=== PATIENT | female | born 1990 | race African-American/Black ===

== ENCOUNTER 2023-04-23 15:32 | Emergency (ER) | payer OTHER ==
[2023-04-23 15:48] VITALS: TEMP 98.4; BMI 32.9
[2023-04-23] MEDS ORDERED: NIFEdipine E.R 60 MG TABLET PO ONE (18:14)
[2023-04-23] MEDS ORDERED: ACETAMINOPHEN INJECTION 100 ML IVPB ONE (18:15)
[2023-04-23] MEDS ORDERED: FAMOTIDINE 20 MG/50 ML IVPB 20 MG/50 ML MG IVPB ONE (18:15)
[2023-04-23] MEDS ORDERED: ONDANSETRON 4 MG/2 ML VIAL ONE (18:15)
[2023-04-23] MEDS: FAMOTIDINE 20 MG/50 ML IVPB 20 MG/50 ML MG IVPB ONE (18:36)
[2023-04-23] MEDS: LACTATED RINGERS SOLUTION 1000 ML INFUS.BAG IV ONE (18:36)
[2023-04-23] MEDS: ONDANSETRON 4 MG/2 ML VIAL IVPUSH ONE (18:36)
[2023-04-23] MEDS: ACETAMINOPHEN 1000 MG/100 ML BAG IVPB ONE (18:36)
[2023-04-23 18:50] LABS: BASO % 0.8 % (0-2.0); HEMATOCRIT 42.9 % (32.4-45.2); HEMOGLOBIN 13.8 GM/dL (10.7-15.3); LYMPH % 14.9 % (8-40); MCH 25.2 pg (25.7-33.7); MEAN CELL VOLUME 78.7 fl (80-96); MEAN PLT VOLUME 9.4 fl (7.5-11.1); MONO % 4.9 % (3.8-10.2); NEUT % 79.4 % (42.8-82.8); PLATELET COUNT 277 10^3/uL (134-434); RBC 5.45 M/mm3 (3.60-5.2); RDW 15.6 % (11.6-15.6); WHITE BLOOD COUNT 10.6 K/mm3 (4.0-10.0)
[2023-04-23] MEDS: NIFEdipine E.R 60 MG TABLET PO SCH (18:56)
[2023-04-23 19:00] LABS: POTASSIUM 4.1 mmol/L (3.5-5.1)
[2023-04-23 19:02] LABS: ALBUMIN 4.7 g/dl (3.4-5.0); CALCIUM 9.5 mg/dL (8.5-10.1)
[2023-04-23 19:03] LABS: BLOOD UREA NITROGEN 10.1 mg/dL (7-18); MAGNESIUM 2.2 mg/dL (1.8-2.4)
[2023-04-23 19:05] LABS: CREATININE 0.8 mg/dL (0.55-1.3)
[2023-04-23 19:07] LABS: BILIRUBIN,TOTAL 0.6 mg/dL (0.2-1)
[2023-04-23 21:02] VITALS: BP 177/103; PULSE 75; RESP 16
== END 2023-04-23 21:21 | disposition home or self-care (01) ==
LOC: JER 15:32
PROC: 3E033GC Introduction of Other Therapeutic Substance into Peripheral Vein, Percutaneous Approach (ICD-10-PCS; principal; 2023-04-23)
PROC: 3E033GC Introduction of Other Therapeutic Substance into Peripheral Vein, Percutaneous Approach (ICD-10-PCS; 2023-04-23)
PROC: 3E033NZ Introduction of Analgesics, Hypnotics, Sedatives into Peripheral Vein, Percutaneous Approach (ICD-10-PCS; 2023-04-23)
DX: R11.2 Nausea with vomiting, unspecified (principal); I10 Essential (primary) hypertension; R19.7 Diarrhea, unspecified; R10.9 Unspecified abdominal pain; Z20.822 Contact with and (suspected) exposure to COVID-19
CPT/HCPCS: 0241U-QW; 36415; 70450-TC; 80053; 83690; 83735; 85025; 93005; 93010; 99285-25; J0131

== ENCOUNTER 2023-10-29 05:23 | Emergency (ER) | payer SELFPAY ==
[2023-10-29 05:36] VITALS: RESP 18; TEMP 98.8; BMI 32.3
[2023-10-29] MEDS ORDERED: NIFEdipine E.R. 90 MG TABLET PO SCH ×2 (06:32→10:00)
[2023-10-29] MEDS ORDERED: ACETAMINOPHEN 325 MG TABLET (FP) ONE (06:46)
[2023-10-29] MEDS ORDERED: METHOCARBAMOL 500 MG TABLET ONE (06:59)
[2023-10-29] MEDS: METHOCARBAMOL 500 MG TABLET PO ONE (07:04)
[2023-10-29] MEDS: ACETAMINOPHEN 325 MG TABLET (FP) PO ONE (07:04)
[2023-10-29 07:26] LABS: INR 0.98 (0.83-1.09); PROTHROMBIN TIME (PATIENT) 11.3 SEC (9.7-13.0)
[2023-10-29 07:29] LABS: ACTIVATED PTT 31.7 SECONDS (25.2-36.5)
[2023-10-29 07:33] LABS: POTASSIUM 3.9 mmol/L (3.5-5.1)
[2023-10-29 07:34] LABS: CALCIUM 8.8 mg/dL (8.5-10.1)
[2023-10-29 07:35] LABS: ALBUMIN 4.4 g/dl (3.4-5.0); BASO % 0.5 % (0-2.0); BLOOD UREA NITROGEN 11.4 mg/dL (7-18); EOS % 1.3 % (0-4.5); HEMATOCRIT 40.4 % (32.4-45.2); LYMPH % 32.3 % (8-40); MCHC 32.3 g/dl (32.0-36.0); MEAN CELL VOLUME 77.6 fl (80-96); MEAN PLT VOLUME 9.2 fl (7.5-11.1); MONO % 11.8 % (3.8-10.2); NEUT % 54.1 % (42.8-82.8); PLATELET COUNT 228 10^3/uL (134-434); RBC 5.21 M/mm3 (3.60-5.2); RDW 15.6 % (11.6-15.6); WHITE BLOOD COUNT 7.7 K/mm3 (4.0-10.0)
[2023-10-29 07:38] LABS: CREATININE 0.7 mg/dL (0.55-1.3)
[2023-10-29 07:40] LABS: BILIRUBIN,TOTAL 0.5 mg/dL (0.2-1); TOT PROT 7.7 g/dl (6.4-8.2)
[2023-10-29] MEDS ORDERED: NIFEdipine E.R. 30 MG TABLET PO ONE (08:04)
[2023-10-29] MEDS ORDERED: NIFEdipine E.R 60 MG TABLET PO ONE (08:04)
[2023-10-29 08:15] VITALS: BP 139/82; PULSE 96
[2023-10-29 08:30] LABS: EPI CELLS 11 /uL (0-25.1); HYALINE CASTS 0 /uL (0-3.1); PH,URINE 7.5 (5.0-8.0); URINE APPEARANCE CLEAR; URINE BACTERIA 362 /uL (0-1359); URINE BILIRUBIN NEGATIVE (NEGATIVE); URINE COLOR YELLOW; URINE GLUCOSE (UA) NEGATIVE (NEGATIVE); URINE KETONE NEGATIVE (NEGATIVE); URINE LEUK ESTERASE TRACE (NEGATIVE); URINE NITRITE NEGATIVE (NEGATIVE); URINE PROTEIN NEGATIVE (NEGATIVE); URINE RBC 35 /uL (0-23.9); URINE UROBILINOGEN 0.2 mg/dL (0.2-1.0); URINE WBC 12 /uL (0-25.8)
== END 2023-10-29 11:00 | disposition home or self-care (01) ==
LOC: JER 05:23
DX: M79.605 Pain in left leg (principal); M54.50 Low back pain, unspecified; G89.29 Other chronic pain
CPT/HCPCS: 36415; 80053; 81003; 84703; 85025; 85610; 85730; 87086; 93971-TC; 99284-25